=== PATIENT | female | born 1980 | race Caucasian/White ===

== ENCOUNTER 2020-10-26 10:54 | Outpatient (NON) | payer BC, SELFPAY ==
[2020-10-26 21:44] LABS: SARS-CoV-2 RNA PCR Negative
== END 2020-10-26 10:55 ==
PROVIDERS: Visit Provider Family Medicine
DX: Z20.822 Contact with and (suspected) exposure to COVID-19 (principal)
CPT/HCPCS: C9803; U0003; U0005

== ENCOUNTER 2021-05-09 06:35 | Outpatient (CLI) | payer BC, SELFPAY ==
--- NOTE | ~2021-05-09 | MR_ITS ---
EXAMINATION: MR brain/brain stem wo/w con DATE: 05/09/2021 08:38 INDICATION: Prolactinoma. TECHNIQUE: Magnetic resonance imaging (MRI) of the brain and brainstem was performed without and with 17 mL MultiHance intravenous contrast. Whole-brain sequences included sagittal T1-weighted FSE, axia l diffusion-weighted FS EPI, axial T2*-weighted GRE, axial T2-weighted FLAIR Propeller, and axial T2- weighted Propeller. Small [id number] sequences included sagittal and coronal T1-weighted FSE cente red at the pituitary. Postcontrast sequences included small [id number]-[id number] coronal T1-weighted FSE in a time course and sagittal T1-weighted FSE and whole-brain axial T1-weighted FSE. Apparent diffusion coefficient (ADC) maps were created. COMPARISON: None. FINDINGS: The pituitary is normal in size with height of 5 mm. The infundibulum is at midline. There is no intracranial hemorrhage, acute infarction, or abnormal intracranial mass lesion. There are scat tered areas of nonspecific increased T2-weighted signal intensity in the cerebral white matter, which is within normal limits for the patient's age. The ventricles are normal in size. The paranasal sinu ses are clear. The orbits are normal. The mastoid air cells are normal. IMPRESSION: 1. Normal aging brain. Reviewed, dictated and finalized at location A. IMPRESSION: 1. Normal aging brain.
[2021-05-09 07:24] LABS: Estimated Glomerular Filt Rate > 60
== END 2021-05-09 06:36 | disposition home or self-care (01) ==
PROVIDERS: PCP Family Medicine
DX: D35.2 Benign neoplasm of pituitary gland (principal)
CPT/HCPCS: 70553; A9577

== ENCOUNTER → 2021-05-12 00:13 | Outpatient (CLI) | payer BC, SELFPAY ==
[2021-05-12 21:55] LABS: SARS-CoV-2 RNA PCR Negative
== END ==
PROVIDERS: PCP Family Medicine; Visit Provider Family Medicine
DX: Z20.822 Contact with and (suspected) exposure to COVID-19 (principal)
CPT/HCPCS: C9803; U0003; U0005

== ENCOUNTER 2023-04-01 14:52 | Outpatient (RCR) | payer BC, SELFPAY ==
--- NOTE | 2023-04-02 08:04 | BUOTOPEVAL ---
Assessment and note entered by Bartolo Taveras, PALOMA/Reyna, CHT Evaluation Information Assessment Status Evaluation Subjective Information Patient reports to outpatient hand therapy with numbness in her right hand. She states she has been to several different doctors and there has been no definitive diagnosis. She points to the pinky, hypothenar eminence, thenar eminence, and thumb as the site of her paresthesias. Neurologist ordered an EMG and this was normal. She reports this has been going on for a year. States at first it was her right hand and bilateral feet, right worse than left. She was prescribed Cymbalta and this resolved the lower extremity paresthesias, but the hand did not change. She reports the symptoms began a year ago. Reports no particular injury associated with the onset of the paresthesias. She is left handed. 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 She uses her left hand to write on the board. She uses a computer some at work. Reports she misses keys with the right hand. She reports when she's driving she has a hard time keeping her hand on the wheel, she frequently needs to lay her hand down on her lap to rest it. With tasks at home she states she cannot depend on this hand, feels like she's going to drop things. Reported Pain Level Pain Score 0: Self Report Assessment OT Clinical Summary Patient referred to outpatient hand therapy with reports of hand numbness that doesn't follow a peripheral nerve entrapment pattern or cervical radiculopathy. EMG testing was negative. In the clinic her [place] Reginaldo monofilament test was normal. 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 Some difficulties noted with fine motor tasks, as measured by the 9- hole peg test. As described above, she did appear to have these symptoms in the lower extremities also. Unfortunately it does not appear that hand therapy will do much for this patient as the subjective reports of paresthesias are not localized to the hand. As the patient described further that these issues were once in her lower extremities also. Questioning whether it could be a side effect of a medication. Testing could be indicated to rule out a MS diagnosis. Plan: Patient was educated on a putty HEP to work on [employer]
== END 2023-04-02 15:03 | disposition home or self-care (01) ==
LOC: ANHOT 14:52
PROVIDERS: PCP Family Medicine; Visit Provider Plastic Surgery
DX: R20.0 Anesthesia of skin (principal)
CPT/HCPCS: 97110; 97167

== ENCOUNTER → 2023-07-18 15:57 | Outpatient (CLI) | payer OTHER, SELFPAY ==
--- NOTE | ~2023-07-18 | MM_ITS ---
EXAMINATION: MM screening meir BI w hallie HISTORY: Screening TECHNIQUE: Craniocaudal and mediolateral oblique 3-D tomosynthesis images were obtained and synthetic 2-D images were generated. CAD analysis was submitted and interpreted. COMPARISON: No prior mammogram is available for comparison at this institution. BREAST PARENCHYMAL COMPOSITION: Breast composed of scattered areas of fibroglandular density FINDINGS: There is no evidence of suspicious mass, calcification, or architectural distortion to sugg est malignancy in either breast. There has been no suspicious interval change. IMPRESSION: 1. No mammographic evidence of malignancy. 2. Recommend routine screening mammography in one year. BI-RADS Category 1: Negative Reviewed, dictated and finalized at location A.
== END ==
PROVIDERS: PCP Nurse Practitioner Family; Visit Provider Student in an Organized Health Care Education/Training Program
DX: Z12.31 Encounter for screening mammogram for malignant neoplasm of breast (principal)
CPT/HCPCS: 77063; 77067

== ENCOUNTER 2024-03-31 09:20 | Outpatient (CLI) | payer OTHER, SELFPAY ==
--- NOTE | ~2024-03-31 | US_ITS ---
US pelvic complete w TV Ordering provider: Booker Hinds MD History: . N91.2 - Amenorrhea, unspecified . Comparison: None. Technique: Transabdominal and endovaginal ultrasound of the pelvis (Doppler ultrasound interrogation techniques used as needed for this exam.) FINDINGS: CERVIX: Normal. UTERUS: Measures 10x 4.5x 5.5 cm in length which is within normal limits and is anteverted. No myome trial masses. ENDOMETRIUM: Normal in thickness measuring 15.6 mm. (Note: the premenopausal endometrium may measure up to 16 mm when in the secretory phase.) No endometrial masses, cysts or fluid. CUL DE SAC: No free fluid. RIGHT OVARY: Normal in size measuring 3.3x 3.3x 3.1 cm. Normal echotexture. Doppler vascular flow pre sent. Cyst is seen measuring 2.5 x 2.4 x 2 cm. LEFT OVARY: Normal in size measuring 2.6x 2.9x 2.9 cm. Normal echotexture. Doppler vascular flow pres ent. ADNEXA: Normal. No mass. IMPRESSION: Thickened endometrium. Correlate with the menstrual stage. Right ovarian cyst. Otherwise, normal pelv ic ultrasound. Reviewed, dictated and finalized at location A. IMPRESSION: Thickened endometrium. Correlate with the menstrual stage. Right ovarian cyst. Otherwise, normal pelvic ultrasound.
== END 2024-03-31 09:21 ==
PROVIDERS: PCP Nurse Practitioner Family; Visit Provider Student in an Organized Health Care Education/Training Program
DX: N91.2 Amenorrhea, unspecified (principal); N83.201 Unspecified ovarian cyst, right side
CPT/HCPCS: 76830; 76856

== ENCOUNTER 2025-09-21 16:12 | Outpatient (CLI) | payer OTHER, SELFPAY ==
--- NOTE | ~2025-09-21 | MM_ITS ---
EXAMINATION: MM screening meir BI w hallie HISTORY: Screening TECHNIQUE: Craniocaudal and mediolateral oblique 3-D tomosynthesis images were obtained and synthetic 2-D images were generated. CAD analysis was submitted and interpreted. COMPARISON: 07/18/2023 BREAST PARENCHYMAL COMPOSITION: Not Dense: There are scattered areas of fibroglandular density. FINDINGS: There is no evidence of suspicious mass, calcification, or architectural distortion to suggest malignancy in either breast. IMPRESSION: 1. No mammographic evidence of malignancy. 2. Recommend routine screening mammography in one year. BI-RADS Category 1: Negative Reviewed, dictated and finalized at location A. INSTALLER
== END 2025-09-21 16:13 | disposition home or self-care (01) ==
LOC: MICIMG 16:13
PROVIDERS: PCP Nurse Practitioner Family; Visit Provider Student in an Organized Health Care Education/Training Program
DX: Z12.31 Encounter for screening mammogram for malignant neoplasm of breast (principal)
CPT/HCPCS: 77063; 77067